=== PATIENT | male | born 2000 | race Caucasian/White ===

== ENCOUNTER 2020-02-24 10:11 | Emergency (ER) | payer MEDICAID, OTHER, SELFPAY ==
[~2020-02-24] VITALS: Ht 177.8 cm; Wt 62.0 kg
--- NOTE | 2020-02-24 10:30 | NUR ---
[facility]. REPORT RECEIVED ROM EMS. PT C/O SUDDEN ONSET OF LEFT SIDED TESTICLE PAIN. HX OF TESTICLE TORSION(LEFT SIDE). PT DENIES ANY URINARY SX/ABD PAIN/N/V. PT'S AOX4. RESPS EVEN AND UNLABORED. BP/SPO2 MONITORS IN PLACE. CALL LIGHT WITHIN REACH.
--- NOTE | 2020-02-24 11:00 | NUR ---
URINAL GIVEN AT THIS TIME.
--- NOTE | 2020-02-24 11:12 | NUR ---
PT PROVIDED URINE SAMPLE AT THIS TIME. URINE COLLECTED AND UA SENT.
[2020-02-24 11:57] LABS: MICROSCOPIC NOT IND
[2020-02-24 12:46] VITALS: BP 112/78
== END 2020-02-24 12:48 | disposition home or self-care (01) ==
LOC: ED 10:48
DX: N43.3 Hydrocele, unspecified (principal); N50.812 Left testicular pain
CPT/HCPCS: 76870; 81003; 99284